=== PATIENT | male | born 1975 | race Caucasian/White ===

== ENCOUNTER → 2024-11-02 07:48 | Outpatient (CLI) | payer BC, SELFPAY ==
--- NOTE | 2024-11-02 07:50 | DI.US.S_ITS ---
PROCEDURE: US SOFT TISSUE HEAD AND NECK INDICATIONS: neck soft tissue neck for L sided lump TECHNIQUE: Real-time scanning was performed of the neck region of interest, with image documentation. COMPARISON: None. FINDINGS: Multiple grayscale and color Doppler images of the left neck were acquired over the patient directed area of palpable concern. No underlying soft tissue mass, fluid collection, or adenopathy. Comparison evaluation of the right neck demonstrates no sonographic abnormalities. Incidental note of normal right cervical chain lymph node. IMPRESSION: No sonographic abnormalities identified over the patient directed area of palpable concern. Recommend continued clinical surveillance with follow-up imaging as needed. Dictated by: George Braden M.D. on 11/02/2024 at 16:07 Approved by: George Braden M.D. on 11/02/2024 at 16:09
== END ==
PROVIDERS: PCP Family Medicine; Referring Provider Family Medicine; Visit Provider Family Medicine
DX: R22.1 Localized swelling, mass and lump, neck (principal)
CPT/HCPCS: 76536